=== PATIENT | male | born 1955 | race African-American/Black ===

== ENCOUNTER 2024-03-27 17:53 | Emergency (ER) | payer OTHER, SELFPAY ==
[2024-03-27] MEDS ORDERED: Ipratropium/Albuterol 3 ML NEB ONE (18:49)
[2024-03-27] MEDS ORDERED: Dexamethasone 4 MG TAB ONE (18:54)
== END 2024-03-27 19:43 | disposition home or self-care (01) ==
LOC: CSHERS 17:53
DX: J45.901 Unspecified asthma with (acute) exacerbation (principal); F17.210 Nicotine dependence, cigarettes, uncomplicated
CPT/HCPCS: 94640; 94760; J7620; J8540

== ENCOUNTER 2024-06-22 08:16 | Observation (INO) | payer MEDICARE, OTHER, SELFPAY ==
[2024-06-22] MEDS ORDERED: Ipratropium/Albuterol 3 ML NEB ONE (08:57)
[2024-06-22 09:21] LABS: #Basophils Less than 0.03 10x3/uL (0.0-0.2); #Eosinophils Less than 0.03 10x3/uL (0.0-0.5); #Monocytes 0.44 10x3/uL (0.0-1.1); #Neutrophils 6.04 10x3/uL (1.5-8.4); %Basophils 0.1 % (0.0-2.0); %Eosinophils 0.3 % (0.0-6.0); %Lymphocytes 12.2 % (18.0-47.0); %Monocytes 5.9 % (0.0-10.0); %Neutrophils 81.1 % (40.0-75.0); Hematocrit 46.4 % (38.8-50.0); Hemoglobin 15.4 g/dL (13.5-17.5); Mean Corpuscular HGB CONC 33.2 g/dL (32.0-36.0); Mean Corpuscular Hemoglobin 27.7 pg (27.0-33.0); Mean Corpuscular Volume 83.6 fL (81.2-95.1); Mean Platelet Volume 10.2 fL (7.4-10.4); Platelet Count 239 10x3/uL (150-450); RBC Distribution Width 14.2 % (11.5-14.5); Red Blood Cell (RBC) Count 5.55 10x6/uL (4.32-5.72); White Blood Cell (WBC) Count 7.45 10x3/uL (3.5-10.5)
[2024-06-22 09:35] LABS: ALT (SGPT) 14 U/L (Less than 45); AST (SGOT) 29 U/L (11-34); Albumin 3.9 g/dL (3.1-4.5); Alkaline Phosphatase 43 U/L (40-110); Anion Gap 14 mmol/L (10-20); BUN (Urea Nitrogen) 5 mg/dL (8.4-25.7); Bilirubin, Total 0.3 mg/dL (0.3-1.2); Calc. Creatinine Clearance 0 mL/min (70-130); Calcium 9.1 mg/dL (7.8-10.44); Carbon Dioxide 27 mmol/L (23-31); Chloride 102 mmol/L (98-107); Estimated GFR 89; Globulin 3.3 g/dL (2.4-3.5); Glucose 114 mg/dL (80-115); Potassium 3.9 mmol/L (3.5-5.1); Protein, Total 7.2 g/dL (5.8-8.1); Sodium 139 mmol/L (136-145)
[2024-06-22 09:42] LABS: Troponin I Less than 0.010 ng/mL (< 0.028)
[2024-06-22] MEDS ORDERED: cefTRIAXone (ROCEPHIN) 1 GM VIAL ONE (09:58)
[2024-06-22] MEDS ORDERED: Azithromycin 250 MG TAB ONE (09:58)
[2024-06-22] MEDS ORDERED: Ibuprofen 200 MG TAB ONE (13:18)
[2024-06-22] MEDS ORDERED: Ibuprofen 100 MG/5 ML UDCUP ONE ×2 (13:18→13:19)
[2024-06-22] MEDS ORDERED: Ondansetron ODT 4 MG TAB PO PRN (13:29)
[2024-06-22] MEDS ORDERED: Ipratropium/Albuterol 3 ML NEB NEB PRN (13:29)
[2024-06-22] MEDS ORDERED: Acetaminophen 325 MG TAB PO PRN (13:29)
[2024-06-22 15:44] VITALS: BMI 25.9
[2024-06-22] MEDS: FLU (Fluad Triv) TS24-25 (65UP)/MF59C/PF 45 MCG/0.5 ML Syringe IM ONE (16:03)
[2024-06-22] MEDS: methylPREDNISolone Sod Succ 40 MG VIAL IVP SCH (16:28)
[2024-06-22] MEDS: Ipratropium/Albuterol 3 ML NEB NEB SCH (19:25)
[2024-06-22] MEDS: Mometasone 200 MCG/Formoterol 5 MCG 60 PUFF INHALER INH SCH (19:25)
[2024-06-22] MEDS: Doxycycline 100 MG CAP PO SCH (20:35)
[2024-06-23 05:03] LABS: Anion Gap 13 mmol/L (10-20); BUN (Urea Nitrogen) 8 mg/dL (8.4-25.7); Calc. Creatinine Clearance 93 mL/min (70-130); Calcium 9.5 mg/dL (7.8-10.44); Carbon Dioxide 25 mmol/L (23-31); Chloride 104 mmol/L (98-107); Estimated GFR 95; Glucose 119 mg/dL (80-115); Potassium 4.1 mmol/L (3.5-5.1); Sodium 138 mmol/L (136-145)
[2024-06-23 05:10] LABS: Hematocrit 43.9 % (38.8-50.0); Hemoglobin 14.8 g/dL (13.5-17.5); Mean Corpuscular HGB CONC 33.7 g/dL (32.0-36.0); Mean Platelet Volume 10.4 fL (7.4-10.4); Platelet Count 228 10x3/uL (150-450); RBC Distribution Width 14.3 % (11.5-14.5); Red Blood Cell (RBC) Count 5.29 10x6/uL (4.32-5.72); White Blood Cell (WBC) Count 13.94 10x3/uL (3.5-10.5)
[2024-06-23 06:04] LABS: Band 25 % (5-11); Lymphocytes 11 % (21-51); MDiff Complete? YES; Monocytes 2 % (0-10); Neutrophil 58 % (42-75); Platelet Adequacy Comment Appears Adequate; RBC Morphology Within Normal Limits; Reactive Lymphocytes 4 % (0-10)
[2024-06-23] MEDS: Pantoprazole 40 MG DR.TAB PO SCH (08:47)
[2024-06-23] MEDS: predniSONE 20 MG TAB PO SCH (08:47)
[2024-06-23] MEDS: Enoxaparin 40 MG (0.4 mL) SYRINGE SC SCH (08:48)
[2024-06-23 08:55] VITALS: BMI 25.9
[2024-06-23 11:17] VITALS: BP 117/65; TEMP 98.4
== END 2024-06-23 11:40 | disposition home or self-care (01) ==
LOC: SUATTDRO 08:16 → CSHERS 08:16 → CSHTELE 15:40 → INTOOBSV 06-23 07:36 → OBSVTOIN 06-23 07:36
PROVIDERS: ADMIT Family Medicine; ATTEND Family Medicine
DX: J96.01 Acute respiratory failure with hypoxia (principal); J44.1 Chronic obstructive pulmonary disease with (acute) exacerbation; F03.90 Unspecified dementia, unspecified severity, without behavioral disturbance, psychotic disturbance, mood disturbance, and anxiety; F17.210 Nicotine dependence, cigarettes, uncomplicated; Z79.51 Long term (current) use of inhaled steroids; Z79.2 Long term (current) use of antibiotics; Z79.899 Other long term (current) drug therapy
CPT/HCPCS: 71046; 80048; 80053; 83880; 84145; 84484; 85025 ×2; 87428; 93005; 94640 ×4; 94664 ×2; 94760 ×2; 94762; 96374; 96375; 99285; G0378 ×3; J0696; J1650; J2919; 36415; J7512; J7620